=== PATIENT | male | born 1960 | race Caucasian/White ===

== ENCOUNTER 2017-01-26 18:45 | Observation (INO) | payer OTHER ==
[~2017-01-26] VITALS: Ht 167.6 cm; Wt 116.3 kg
[2017-01-26 19:21] LABS: BASO % 0.1 % (0.2-1.2); EOS # 0.1 10_X3_uL (0.0-0.5); EOS % 0.4 % (0.8-7.0); GRAN # 11.1 10_X3_uL (1.8-5.4); GRAN % 78.6 % (34.0-67.9); HEMATOCRIT 44.7 % (40-51); HEMOGLOBIN 14.9 g/dL (13.7-17.5); LYMPH # 1.8 10_X3_uL (1.3-3.6); MEAN CORPUSCULAR HEMOGLOBIN 32.5 pg (27.0-33.0); MEAN CORPUSCULAR HGB CONC 33.3 g/dL (32.0-36.0); MEAN CORPUSCULAR VOLUME 97.6 fL (79-92); MEAN PLATELET VOLUME 9.8 fl (7.5-11.5); MONO # 1.1 10_X3_uL (0.3-0.8); MONO % 7.9 % (5.3-12.2); PLATELET COUNT 220 x10_3/uL (163-337); RED BLOOD COUNT 4.58 x10_6/uL (4.6-6.1); RED CELL DISTRIBUTION WIDTH 13.6 % (11.6-14.4); WHITE BLOOD COUNT 14.1 x10_3/uL (4.2-9.1)
[2017-01-26 19:30] LABS: ALBUMIN 4.1 gm/dL (3.4-5.0); ALKALINE PHOSPHATASE 83 U/L (50-136); ALT/SGPT 11 U/L (7.53-40.17); AST/SGOT 11 U/L (6.66-35.34); BLOOD UREA NITROGEN 13 mg/dL (7-18); CALCIUM 8.9 mg/dL (8.7-10.7); CARBON DIOXIDE 23 mmol/L (21-32); CREATININE 0.9 mg/dL (0.6-1.3); GLUCOSE,RANDOM 164 mg/dL (70-99); POTASSIUM 4.1 mmol/L (3.5-5.1); SODIUM 136 mmol/L (136-145); TOTAL PROTEIN 7.9 gm/dL (6.4-8.2)
[2017-01-26 20:35] LABS: ARTERIAL BLD GAS O2 SATURATION 90.7 % (94-98); ARTERIAL BLOOD GAS BASE EXCESS -2.8 mmol/L (-2.0-3.0); ARTERIAL BLOOD GAS HCO3 21.1 mmol/L (22-26); ARTERIAL BLOOD GAS pH 7.39 (7.35-7.45)
[2017-01-26 21:07] LABS: PARTIAL THROMBOPLASTIN TIME 58.1 SECONDS (21.3-29.3)
[2017-01-26 21:08] LABS: PROTHROMBIN TIME (PATIENT) 60.3 SECONDS (9.9-11.1)
[2017-01-27 06:26] LABS: PARTIAL THROMBOPLASTIN TIME 57.2 SECONDS (21.3-29.3)
[2017-01-28 07:37] LABS: GRAN # 14.1 10_X3_uL (1.8-5.4); GRAN % 91.9 % (34.0-67.9); HEMATOCRIT 41.7 % (40-51); HEMOGLOBIN 14.3 g/dL (13.7-17.5); LYMPH # 0.8 10_X3_uL (1.3-3.6); LYMPH % 5.1 % (21.8-53.1); MEAN CORPUSCULAR HEMOGLOBIN 33.2 pg (27.0-33.0); MEAN CORPUSCULAR HGB CONC 34.3 g/dL (32.0-36.0); MEAN CORPUSCULAR VOLUME 96.8 fL (79-92); MEAN PLATELET VOLUME 10.4 fl (7.5-11.5); MONO # 0.5 10_X3_uL (0.3-0.8); PLATELET COUNT 283 x10_3/uL (163-337); RED BLOOD COUNT 4.31 x10_6/uL (4.6-6.1); RED CELL DISTRIBUTION WIDTH 13.3 % (11.6-14.4); WHITE BLOOD COUNT 15.4 x10_3/uL (4.2-9.1)
[2017-01-28 07:44] LABS: INR 4.3 (0.9-1.1); PROTHROMBIN TIME (PATIENT) 44.1 SECONDS (9.9-11.1)
[2017-01-28 07:52] LABS: ALBUMIN 3.6 gm/dL (3.4-5.0); ALKALINE PHOSPHATASE 103 U/L (50-136); ALT/SGPT 30 U/L (7.53-40.17); AST/SGOT 24 U/L (6.66-35.34); BILIRUBIN,TOTAL 0.22 mg/dL (0.0-1.0); CALCIUM 8.9 mg/dL (8.7-10.7); CARBON DIOXIDE 21 mmol/L (21-32); GLUCOSE,RANDOM 399 mg/dL (70-99); POTASSIUM 4.5 mmol/L (3.5-5.1); SODIUM 134 mmol/L (136-145); TOTAL PROTEIN 7.3 gm/dL (6.4-8.2)
[2017-01-28 07:56] LABS: BLOOD UREA NITROGEN 19 mg/dL (7-18)
[2017-01-29 08:11] LABS: BASO % 0.1 % (0.2-1.2); GRAN # 12.5 10_X3_uL (1.8-5.4); GRAN % 89.7 % (34.0-67.9); HEMATOCRIT 44.5 % (40-51); HEMOGLOBIN 14.8 g/dL (13.7-17.5); MEAN CORPUSCULAR HEMOGLOBIN 32.6 pg (27.0-33.0); MEAN CORPUSCULAR HGB CONC 33.3 g/dL (32.0-36.0); MEAN PLATELET VOLUME 10.1 fl (7.5-11.5); MONO # 0.4 10_X3_uL (0.3-0.8); MONO % 3.2 % (5.3-12.2); PLATELET COUNT 279 x10_3/uL (163-337); RED BLOOD COUNT 4.54 x10_6/uL (4.6-6.1); RED CELL DISTRIBUTION WIDTH 13.3 % (11.6-14.4)
[2017-01-29 08:17] LABS: INR 3.7 (0.9-1.1); PROTHROMBIN TIME (PATIENT) 38.1 SECONDS (9.9-11.1)
[2017-01-29 08:34] LABS: ALBUMIN 3.7 gm/dL (3.4-5.0); ALKALINE PHOSPHATASE 91 U/L (50-136); ALT/SGPT 44 U/L (7.53-40.17); AST/SGOT 23 U/L (6.66-35.34); BILIRUBIN,TOTAL 0.23 mg/dL (0.0-1.0); BLOOD UREA NITROGEN 19 mg/dL (7-18); CARBON DIOXIDE 29 mmol/L (21-32); CREATININE 0.8 mg/dL (0.6-1.3); GLUCOSE,RANDOM 250 mg/dL (70-99); POTASSIUM 4.7 mmol/L (3.5-5.1); SODIUM 138 mmol/L (136-145); TOTAL PROTEIN 7.2 gm/dL (6.4-8.2)
== END 2017-01-29 14:18 | disposition home or self-care (01) ==
LOC: ER 18:45 → MS 22:31 → UNDODEPER 01-30 09:22
PROVIDERS: Emergency Medicine; ADMIT Family Medicine
PROC: 3E0234Z Introduction of Serum, Toxoid and Vaccine into Muscle, Percutaneous Approach (ICD-10-PCS; principal; 2017-01-28)
DX: J44.0 Chronic obstructive pulmonary disease with (acute) lower respiratory infection (principal); D68.9 Coagulation defect, unspecified; J20.9 Acute bronchitis, unspecified; J44.1 Chronic obstructive pulmonary disease with (acute) exacerbation; I25.10 Atherosclerotic heart disease of native coronary artery without angina pectoris; I73.9 Peripheral vascular disease, unspecified; E11.9 Type 2 diabetes mellitus without complications; R51 Headache; I10 Essential (primary) hypertension; R50.9 Fever, unspecified; M79.1 Myalgia; F17.210 Nicotine dependence, cigarettes, uncomplicated; Z79.4 Long term (current) use of insulin; Z79.82 Long term (current) use of aspirin; Z79.02 Long term (current) use of antithrombotics/antiplatelets; Z79.01 Long term (current) use of anticoagulants; Z79.891 Long term (current) use of opiate analgesic; Z79.899 Other long term (current) drug therapy; Z83.3 Family history of diabetes mellitus; Z80.9 Family history of malignant neoplasm, unspecified; Z95.1 Presence of aortocoronary bypass graft; Z23 Encounter for immunization
CPT/HCPCS: 36415; 36600; 71010; 71260; 80053; 80061; 82550; 82553; 82803; 82962; 83036; 83880; 85025; 85610; 85730; 86738; 87040; 87070; 87205; 87400; 90732; 93005; 93041; 94640; 94664; 96374; 99070; 99284; 99285-25; G0009; G0378; J2920; J2930

== ENCOUNTER → 2017-01-26 | Emergency (ER) | payer OTHER | LOC: ER 18:45 | DX: J44.1 Chronic obstructive pulmonary disease with (acute) exacerbation (principal); I51.9 Heart disease, unspecified; Z95.1 Presence of aortocoronary bypass graft; E11.9 Type 2 diabetes mellitus without complications; F17.210 Nicotine dependence, cigarettes, uncomplicated; Z79.4 Long term (current) use of insulin; Z79.01 Long term (current) use of anticoagulants; Z79.891 Long term (current) use of opiate analgesic; Z79.899 Other long term (current) drug therapy ==